=== PATIENT | male | born 1990 | race Hispanic/Latino ===

== ENCOUNTER 2024-07-09 10:51 | Emergency (ER) | payer OTHER ==
[~2024-07-09] VITALS: Ht 167.6 cm; Wt 94.5 kg
[2024-07-09] MEDS: ACETAMINOPHEN 325 MG TAB PO ONE (12:24)
[2024-07-09] MEDS: DERMABOND TOPICAL SKIN ADHESIVE TOP ONE (13:20)
[2024-07-09 15:14] VITALS: BP 133/77; TEMP 97.1; O2SAT 100
== END 2024-07-09 15:17 | disposition home or self-care (01) ==
LOC: M ED 10:51 → EDBD 10:51 → M ED 15:17
DX: S81.011A Laceration without foreign body, right knee, initial encounter (principal); Y92.410 Unspecified street and highway as the place of occurrence of the external cause; Y93.9 Activity, unspecified; Y99.9 Unspecified external cause status; V43.52XA Car driver injured in collision with other type car in traffic accident, initial encounter

== ENCOUNTER 2025-07-29 12:18 | Emergency (ER) | payer OTHER ==
[~2025-07-29] VITALS: Ht 167.6 cm; Wt 98.5 kg
[2025-07-29 13:21] LABS: KETONE, URINE AUTO RFX NEGATIVE (NEGATIVE); LEUKOCYTE ESTERASE UR AUTO RFX NEGATIVE (NEGATIVE); NITRITE, URINE AUTO RFX NEGATIVE (NEGATIVE); RBC, URINE AUTO RFX 0 /HPF (0-3); SQUAM EPITHELIAL CELL UR AURFX 0 /HPF (0-6); WBC, URINE AUTO RFX 1 /HPF (0-3)
[2025-07-29 17:45] LABS: BASO # 0.1 10^3/uL (0.0-0.2); BASO % 0.7 % (0.0-1.0); EOS # 0.3 10^3/uL (0.0-0.5); EOS % 4.0 % (0.0-3.0); LYMPH # 2.2 10^3/uL (1.5-5.0); LYMPH % 30.4 % (24.0-44.0); MONO # 0.6 10^3/uL (0.0-0.8); MONO % 7.9 % (2.0-8.0); NEUTROPHILS # 4.1 10^3/uL (1.5-8.5); NEUTROPHILS % 56.6 % (36.0-66.0); PLATELET COUNT, AUTOMATED 210 10^3/uL (150-450)
[2025-07-29 18:21] LABS: ALT/SGPT 36 U/L (7.0-40); AST/SGOT 30 U/L (<34); CALCIUM LEVEL 9.3 MG/DL (8.5-10.1); CARBON DIOXIDE LEVEL 27 MMOL/L (20-31); CHLORIDE LEVEL 102 MMOL/L (98-107); CREATININE FOR GFR 0.97 MG/DL (0.70-1.30); GLOMERULAR FILTRATION RATE > 90.0 (>60); POTASSIUM SERUM 3.9 MMOL/L (3.5-5.1); SODIUM LEVEL 139 MMOL/L (136-145)
[2025-07-29] MEDS ORDERED: ISOVUE-370 76% 100 ML VIAL As Ordered ONE (18:47)
[2025-07-29 20:49] VITALS: O2SAT 98
[2025-07-29 20:55] VITALS: BP 128/78; TEMP 98.6; O2SAT 97
[2025-07-29] MEDS ORDERED: ELIQ5TAB PO (20:55)
[2025-07-29] MEDS ORDERED: COLA100C5 PO (20:59)
[2025-07-29] MEDS: APIXABAN 5 MG TAB PO ONE (21:06)
== END 2025-07-29 21:12 | disposition home or self-care (01) ==
LOC: M ED 12:18
DX: I26.99 Other pulmonary embolism without acute cor pulmonale (principal); Z79.01 Long term (current) use of anticoagulants; Z79.899 Other long term (current) drug therapy
CPT/HCPCS: 36415; 74177; 80048; 80076; 81001; 85025; 99284; Q9967

== ENCOUNTER → 2025-07-30 | Outpatient (CLI) | payer OTHER ==
[~2025-07-30] MED LIST: COLA100C5 PO; ELIQ5TAB PO
[2025-07-30 15:20] LABS: CK-MB VALUE MASS 1.0 NG/ML (<3.6)
[2025-07-30 15:22] LABS: CPK CREATINE PHOSPHOKINASE 210.0 U/L (46-171); MB/CK RELATIVE INDEX 0.47 (< OR =4)
== END ==
LOC: M LAB 13:35
DX: R10.9 Unspecified abdominal pain (principal)

== ENCOUNTER 2025-07-31 11:43 | Emergency (ER) | payer OTHER ==
[~2025-07-31] VITALS: Ht 170.2 cm; Wt 99.7 kg
[~2025-07-31 11:43] MED LIST changes: -ISOVUE-370 76% 100 ML VIAL As Ordered ONE
[2025-07-31 12:29] LABS: BASO # 0.1 10^3/uL (0.0-0.2); BASO % 0.9 % (0.0-1.0); EOS # 0.3 10^3/uL (0.0-0.5); EOS % 5.4 % (0.0-3.0); LYMPH # 1.6 10^3/uL (1.5-5.0); LYMPH % 29.0 % (24.0-44.0); MONO # 0.4 10^3/uL (0.0-0.8); MONO % 6.5 % (2.0-8.0); NEUTROPHILS # 3.1 10^3/uL (1.5-8.5); NEUTROPHILS % 57.8 % (36.0-66.0); PLATELET COUNT, AUTOMATED 208 10^3/uL (150-450)
[2025-07-31 13:08] LABS: ALT/SGPT 32 U/L (7.0-40); AST/SGOT 21 U/L (<34); CALCIUM LEVEL 9.2 MG/DL (8.5-10.1); CARBON DIOXIDE LEVEL 24 MMOL/L (20-31); CHLORIDE LEVEL 103 MMOL/L (98-107); CREATININE FOR GFR 0.92 MG/DL (0.70-1.30); GLOMERULAR FILTRATION RATE > 90.0 (>60); POTASSIUM SERUM 3.6 MMOL/L (3.5-5.1); SODIUM LEVEL 136 MMOL/L (136-145)
[2025-07-31 14:36] LABS: INR 1.16
[2025-07-31 14:43] LABS: CK-MB VALUE MASS 1.3 NG/ML (<3.6)
[2025-07-31 14:44] LABS: CPK CREATINE PHOSPHOKINASE 196 U/L (46-171); MB/CK RELATIVE INDEX 0.66 (< OR =4)
[2025-07-31 15:03] LABS: CK-MB VALUE MASS < 1.0 NG/ML (<3.6)
[2025-07-31 15:04] LABS: CPK CREATINE PHOSPHOKINASE 170 U/L (46-171)
[2025-07-31 16:28] VITALS: BP 142/69; TEMP 98.2; O2SAT 96
[2025-07-31 16:32] VITALS: O2SAT 96
== END 2025-07-31 16:38 | disposition home or self-care (01) ==
LOC: M ED 11:43
DX: I26.99 Other pulmonary embolism without acute cor pulmonale (principal); R94.31 Abnormal electrocardiogram [ECG] [EKG]; Z79.01 Long term (current) use of anticoagulants; Z79.899 Other long term (current) drug therapy

== ENCOUNTER → 2025-07-31 | Outpatient (CLI) | payer OTHER ==
[~2025-07-31] MED LIST changes: +ISOVUE-370 76% 100 ML VIAL As Ordered ONE
== END ==
LOC: M RAD 07:00
PROVIDERS: ATTEND Physician Assistant
DX: I26.94 Multiple subsegmental thrombotic pulmonary emboli without acute cor pulmonale (principal)
CPT/HCPCS: 71275; Q9967